=== PATIENT | female | born 1955 | race Caucasian/White ===

== ENCOUNTER 2020-09-28 16:26 | Inpatient (IN) | payer MEDICARE, OTHER ==
[~2020-09-28] VITALS: Ht 177.8 cm; Wt 86.5 kg
[~2020-09-28 16:26] MED LIST: ASPIRIN 81M81 MG/TA2 PO; COLACE 100100 MG/CAP PO; DULCOLAX10 MG RC; HCTZ; HCTZ 25MG TAB25 MG PO; PERCOCET 325 MG1 TA2 PO; TUMS500 MG PO; ZESTRIL40 MG PO
[2020-09-28 18:37] LABS: COLLECTION METHOD CLEAN CATCH
[2020-09-28 18:48] LABS: MUCOUS Present /lpf; PH 7 (5-8); SQUAMOUS EPITHELIAL 0-2 /hpf; URINE APPEARANCE Clear; URINE BACTERIA None Seen /hpf; URINE BILIRUBIN Negative (NEGATIVE); URINE BLOOD Negative (NEGATIVE); URINE COLOR Yellow; URINE GLUCOSE 3+ (NEGATIVE); URINE KETONE Negative (NEGATIVE); URINE LEUKOCYTE ESTERASE Negative (NEGATIVE); URINE NITRATE Negative (NEGATIVE); URINE PROTEIN(semi-quant) 2+ (NEGATIVE); URINE RBC 0-2 /hpf; URINE UROBILINOGEN Negative (NEGATIVE)
[2020-09-28 18:49] LABS: BASO # 0.1 (0.0-0.2); BASO % 0.5 % (0.0-2.0); EOS # 0.1 (0.0-0.7); EOS % 0.8 % (0-4.0); GRAN # 6.6 (1.4-6.5); GRAN % 59.2 % (42.2-75.2); HEMATOCRIT 47.6 % (37.0-47.0); HEMOGLOBIN 15.8 g/dl (12.5-16.0); LYMPH # 3.8 (1.2-3.4); LYMPH % 33.7 % (20.0-51.0); MEAN CELL VOLUME 92 fl (80.0-100.0); MEAN CORPUSCULAR HEMOGLOBIN 31 pg (27.0-31.0); MEAN CORPUSCULAR HGB CONC 33 g/dl (33.0-37.0); MEAN PLATELET VOLUME 9.5 fl (7.4-10.4); MONO # 0.6 (0.1-0.6); MONO % 5.2 % (1.7-9.3); PLATELET COUNT 247 K/mm3 (130-400); RED BLOOD COUNT 5.16 M/mm3 (4.10-5.30); REDCELL DISTRIBUTION WIDTH-CV 12.5 % (11.5-14.5)
[2020-09-28 18:51] LABS: ALANINE AMINOTRANSFERASE 65 U/L (4-34); ALBUMIN 4.4 gm/dL (3.5-5.0); ALKALINE PHOSPHATASE 190 U/L (50-136); ANION GAP 9 mmol/L (7-16); AST,SGOT 56 U/L (15-37); BILIRUBIN,TOTAL 0.6 mg/dL (0.0-1.0); BLOOD UREA NITROGEN 9 mg/dL (7-17); CALCIUM 9.5 mg/dL (8.4-10.2); CARBON DIOXIDE 31 mmol/L (22-30); CHLORIDE 98 mmol/L (98-107); CREATININE, serum 0.47 (0.52-1.25); GLUCOSE 232 mg/dL (74-106); POTASSIUM 3.4 mmol/L (3.4-5.0); SODIUM 137 mmol/L (137-145); TOTAL PROTEIN 8.4 gm/dL (6.4-8.2)
[2020-09-28 19:06] LABS: TROPONIN-I < 0.012 ng/mL (0.000-0.035)
[2020-09-28 19:57] LABS: TSH w REFLEX 2.819 uIU/mL (0.350-4.940)
[2020-09-28 21:58] LABS: MAGNESIUM 1.5 mg/dL (1.6-2.3); PHOSPHOROUS 3.3 mg/dL (2.5-4.5)
[2020-09-28] MEDS ORDERED: ASPIRIN 32325 MG/TAB PO (22:15)
[2020-09-28 23:30] LABS: INR 1.1 (0.8-3.0); PROTHROMBIN TIME 11.7 SECONDS (9.7-12.8)
[2020-09-28 23:32] LABS: PARTIAL THROMBOPLASTIN TIME 31.4 SECONDS (26.0-37.0)
[2020-09-29] VITALS (275 sets, daily range): BP systolic 152–187; BP diastolic 67–87; PULSE 67–106; TEMP 97.8–98.9; O2SAT 90–100
--- NOTE | 2020-09-29 02:47 | NUR ---
PT ADMITTED TO UNIT AT 0150. ATTACHED TO CONTINUOUS MONITORING AND INITIAL ASSESSMENT COMPLETED. AOX4, REPORTS HEADACHE AND FEELING DIZZY. UNDERSTANDS AND COMPLYS WITH PLAN OF CARE FOR BOTH TONIGHT AND TOMORROW. CONCERNS AND QUESTIONS ADDRESSED AND UNIT ORIENTATION COMPLETED.
[2020-09-29 05:36] LABS: BASO # 0.1 (0.0-0.2); BASO % 0.4 % (0.0-2.0); EOS # 0.1 (0.0-0.7); EOS % 0.7 % (0-4.0); GRAN # 8.6 (1.4-6.5); GRAN % 70.9 % (42.2-75.2); HEMATOCRIT 41.2 % (37.0-47.0); HEMOGLOBIN 14.1 g/dl (12.5-16.0); LYMPH # 2.8 (1.2-3.4); MEAN CELL VOLUME 91 fl (80.0-100.0); MEAN CORPUSCULAR HEMOGLOBIN 31 pg (27.0-31.0); MEAN CORPUSCULAR HGB CONC 34 g/dl (33.0-37.0); MEAN PLATELET VOLUME 9.8 fl (7.4-10.4); MONO # 0.6 (0.1-0.6); MONO % 4.5 % (1.7-9.3); PLATELET COUNT 209 K/mm3 (130-400); RED BLOOD COUNT 4.53 M/mm3 (4.10-5.30); REDCELL DISTRIBUTION WIDTH-CV 12.7 % (11.5-14.5)
[2020-09-29 05:47] LABS: CALCIUM 9.1 mg/dL (8.4-10.2); CHOLESTEROL RISK RATIO 4.3; CREATININE, serum 0.59 (0.52-1.25); POTASSIUM 3.5 mmol/L (3.4-5.0)
--- NOTE | 2020-09-29 07:30 | NUR ---
Patient resting in bed; alert and oriented. Assisted up to bathroom. Gait slightly "wobbly" requires standy assist. Assessment complete. Complains of weakness for several days but denies any shortness of breath or any pain. Will continue to monitor.
--- NOTE | 2020-09-29 09:45 | NUR ---
Discussed plan of care with hospitalist. Mail Truck Driver placed order for non-titratable cardizem drip. Discussed with hospitalist and will hold off initiating drip unless systolic BP is greater than 180. Currently running in the 160's. Plan for MRI at 1130. Will continue to monitor.
--- NOTE | 2020-09-29 10:44 | NUR ---
Initial visit; Patient thanked Journeyman Operator Assistant for looking in on her and offering God's blessings and keeping her in Journeyman Operator Assistant's prayers.
--- NOTE | 2020-09-29 11:41 | NUR ---
FLORINDA Diaz is transporting patient via wheelchair to MRI. Will go from MRI directly to surgical floor. Patient alert and orient and per usual status upon transfer.
--- NOTE | 2020-09-29 13:12 | NUR ---
Pt arrives via w/c from MRI. Report was received by Ayesha, PRIMER BOXER. Blood sugar 173. See flowsheet for VS. Patient denies pain or shortness of breath. States that she does have some dizziness remaining but it has improved. INT to RAC/RFA area. Petichiae noted to left arm, remains stable per PRIMER BOXER. Pt aware that she needs to call for gait assessment when she needs the restroom, states understanding. Pt reports that her weakness has stabilized. Alert, oriented x4. Oriented to room and call light system. Call light, phone and personal items within reach. Telemetry ordered, awaiting supervisor hand silvering from ICU.
--- NOTE | 2020-09-29 17:00 | NUR ---
Pt c/o slight headache starting. PRN Tylenol administered per orders. Pt concerned out blood sugars and possible Insulin use when at home. This nurse reviews different options with pt and the importance of establishing a PCP. Pt verbalizes understanding. Call light in reach.
--- NOTE | 2020-09-29 19:22 | NUR ---
Report with FLORINDA Vargas. Pt resting in bed, denies needs at this time. Call light in reach.
--- NOTE | 2020-09-29 23:59 | NUR ---
PT ALERT AND ORIENTED. PT ABLE TO AMBULATE INDEPENDENTLY IN ROOM. PT HAS PETECHIAE AND REDNESS/BRUISING OVER LEFT ARM FROM BP CUFF IN ED. PT NEURO CHECKS WITHIN DEFINED LIMITS, NO SIGNIFICANT CHANGES NOTED AT THIS TIME. PT ABLE TO CONVERSE FREELY AND EXPRESS NEEDS. PT CALL LIGHT [employer] REACH.
[2020-09-30] VITALS (12 sets, daily range): BP systolic 142–200; BP diastolic 72–120; PULSE 57–70; TEMP 97.8–98.7
--- NOTE | 2020-09-30 02:14 | NUR ---
MINOR HEAD TREMOR NOTED FOR 0200 NEURO CHECK. PT JIG OPERATOR NOTED TO BE WEAKER IN LEFT HAND, PT ALERT AND ORIENTEDX4. PT PUPILS PERRLA. CHARGE NURSE NOTIFIED, PT JIG OPERATOR EQUAL UPON REASSESSMENT. WILL CONTINUE TO MONITOR.
--- NOTE | 2020-09-30 03:53 | NUR ---
NOTIFIED OF ELEVATED BLOOD PRESSURE. 191/88. RECHECKED MANUALLY, 190/102 ON LEFT ARM.
--- NOTE | 2020-09-30 05:03 | NUR ---
PT COMPLAINING OF HEADACHE, PRN PAIN MEDICATION PROVIDED PER ORDERS.
--- NOTE | 2020-09-30 06:05 | NUR ---
PT 0600 BP 163/85. TRUONG FLORES NOTIFIED OF BP VALUE. CONFIRMED TO CONTINUE CARDIZEM GTT AND RECHECK BP AT SHIFT CHANGE IN 30MIN.
--- NOTE | 2020-09-30 07:03 | NUR ---
GAVE REPORT TO DAY SHIFT, WILL CONTINUE TO FOLLOW BP VALUES.
--- NOTE | 2020-09-30 11:14 | NUR ---
Patient alert and oriented, answers questions appropriately. See assessment. Hand oil deliverer even, dorsi and plantar flexion equal. Tongue midline. Pupils equal and reactive to light. NO c/o vertigo or weakness. Fine tremors noted to right hand. No other c/o at this time.
--- NOTE | 2020-09-30 11:55 | NUR ---
fruit or nut farmworker met with patient to discuss discharge plan. Patient states she lives with her daughter Venus [phone]. Patient reports she is independent will all activities of daily living and uses no equipment to assist with mobility. Patient reports that she does not have a PCP established but wishes to get one. Patient states she would prefer a female who is an internal medicine doctor. fruit or nut farmworker has reached out to the office of Dr. Cata Stephen to establish patient and is awaiting a call back. Patient reports that she has previously not had issues affording medications but thinks she will upon discharge. Email sent to Aleksandra Lambert to initiate Medicaid application. Patient reports that she does not have a DPOA-HC established but wishes to take a form home to speak with her daughter.fruit or nut farmworker provided form to patient and educated her that she will need to have it notarized and to not sign it until then.Patient plans to discharge home with her daughter when ready. *Discharge Plan: Home with daughter*
--- NOTE | 2020-09-30 23:00 | NUR ---
PT ALERT AND ORIENTED. PT REPORTS FRUSTRATION OVER BLOOD SUGAR MONITORING AND INSULIN USE. PT EDUCATED TO BEST OF ABILITY. PT NEURO CHECKS WITHIN DEFINED LIMITS, NO SIGNIFICANT CHANGES NOTED AT THIS TIME. PT IV IN RIGHT AC UNABLE TO FLUSH, LEAKING. IV DISCONTINUED AND RESTARTED 20G IN RIGHT FOREARM. PT CALL LIGHT WITHIN REACH.
[2020-10-01 03:19] VITALS: BP 162/84; PULSE 61; TEMP 98.3
--- NOTE | 2020-10-01 05:19 | NUR ---
PT PROGRESSING WITH PLAN OF CARE. PT VS REMAINED STABLE THIS SHIFT. PT NEURO CHECKS WITHIN DEFINED LIMITS, NO SIGNIFICANT CHANGES NOTED DURING SHIFT. PT ABLE TO AMBULATE INDEPENDENTLY IN ROOM. PT FREE FROM INJURY THIS SHIFT.
[2020-10-01 06:59] LABS: BASO # 0.1 (0.0-0.2); BASO % 0.8 % (0.0-2.0); EOS # 0.1 (0.0-0.7); EOS % 1.8 % (0-4.0); GRAN # 3.9 (1.4-6.5); HEMATOCRIT 40.5 % (37.0-47.0); HEMOGLOBIN 13.5 g/dl (12.5-16.0); LYMPH # 2.9 (1.2-3.4); LYMPH % 37.6 % (20.0-51.0); MEAN CELL VOLUME 93 fl (80.0-100.0); MEAN CORPUSCULAR HEMOGLOBIN 31 pg (27.0-31.0); MEAN CORPUSCULAR HGB CONC 33 g/dl (33.0-37.0); MEAN PLATELET VOLUME 10.4 fl (7.4-10.4); MONO # 0.6 (0.1-0.6); MONO % 7.3 % (1.7-9.3); PLATELET COUNT 191 K/mm3 (130-400); RED BLOOD COUNT 4.36 M/mm3 (4.10-5.30); REDCELL DISTRIBUTION WIDTH-CV 12.5 % (11.5-14.5)
[2020-10-01 07:12] LABS: CALCIUM 9.6 mg/dL (8.4-10.2); CREATININE, serum 0.53 (0.52-1.25)
[2020-10-01 08:10] VITALS: PULSE 67; TEMP 98.4
[2020-10-01 08:48] VITALS: BP 154/76
[2020-10-01] MEDS ORDERED: LIPITOR 40MG TA40 MG PO (09:12)
[2020-10-01] MEDS ORDERED: COREG 25MG25 MG/TAB PO (09:13)
[2020-10-01] MEDS ORDERED: NORVASC 5MG5 MG/TAB PO (09:13)
[2020-10-01] MEDS ORDERED: GLUCOPHAGE500 MG/TAB PO (09:15)
[2020-10-01] MEDS ORDERED: COZAAR 25MG25 MG/TAB PO ×2 (09:15)
[2020-10-01] MEDS ORDERED: ASPIRIN E.C. 8181 MG PO (09:15)
[2020-10-01] MEDS ORDERED: COZAAR 50MG50 MG/TAB PO (09:25)
[2020-10-01] MEDS ORDERED: NICODERM C7 MG/PATCH TD (09:35)
--- NOTE | 2020-10-01 11:24 | NUR ---
sheet metal production worker met with patient and providers and assisted with securing a safe discharge home with daughter today. Worker secured an appointment with Dr Ginger Molina on 10/07/2020 at 11:45am. Worker provided information on [facility] and advised that they are an agency that will see patient prior to a primary care provider appointment. Worker contacted Nahomi at [facility] and gave the referral. Nahomi will contact patient this evening and schedule a visit. Worker provided patient the contact information for Jony Sr with [employer] as Jony will provide patient with a free bus pass. Worker arranged for patient to obtain a front wheeled walker with [facility] as they are agency that will bill medicare and will accept hospital voucher for uninsured copay. Worker arranged for walker to be delivered to patient's room today before 2:00. Worker assisted with payment for all prescriptions through Room. Patient states her family will transport her home today and daughter will pickling operator her prescriptions this date. Worker provided patient with written contact information of our financial counselor to begin application for medicaid. Worker provided patient with Area [employer] information to contact for health health insurance adjuster to explore insurances coverage for prescriptions. Patient will discharge home with home health today.
--- NOTE | 2020-10-01 11:36 | NUR ---
dam worker presented the IM form and assisted patient complete a durable power of commercial attorney for health care. Copies given to patient and a copy placed on chart.
[2020-10-01 11:42] VITALS: BP 152/92; PULSE 62; TEMP 98.1
--- NOTE | 2020-10-01 12:26 | NUR ---
Patient alert and oriented, answers questions appropriately. See assessment. Heart tones strong and even, pulses palpable. No c/o chest/neck pain or pressure. Patient refuses to keep arm still for BP checks, attempts to remove cuff. States BP cuff hurts her arm and she doesn't want BP taken. Recorded BPs appear inaccurate. Patient reqeusted walker for discharge, when walker delivered, patient refuses walker. No other c/o at this time.
--- NOTE | 2020-10-01 14:16 | NUR ---
Patient refused to accept the front wheeled walker when it was delivered to her hospital room. Worker contacted patient's provider, Wanda and advised of the above information.
--- NOTE | 2020-10-01 15:45 | NUR ---
Discharge instructions reviewed with patient, verbalized understanding. Discharged via wheelchair to auto/home with family at 1525.
--- NOTE | 2020-10-01 17:00 | NUR ---
mill worker discussed with patient that [facility] will deliver but they would not be able to get her medications to her today and that the ealiest would be tomorrow. Patient is frustrated by this and doesn't understand why the hospital cannot just administer her tonights medications before she leaves. Worker explained that some of the medications were on a time regimen and that it would be a safety concern. Worker asked if the patient had secured a ride home. Patient replied that her friend Elmer was going to be here between [phone] to pick her up. Worker suggested to patient to have Elmer take her by [facility] on the way home to lemon picker her medications.
--- NOTE | 2020-10-06 15:31 | NUR ---
Adrienne with [facility] states that patient refuses to have home health at this time.
== END 2020-10-01 15:25 | disposition home or self-care (01) | DRG 304 ==
LOC: COL.ER 16:26 → SURG 21:42 → ICU 21:42 → SURG 09-29 12:38
PROVIDERS: Emergency Medicine; Nurse Practitioner Family; Physician Assistant; ADMIT Student in an Organized Health Care Education/Training Program
DX: I16.1 Hypertensive emergency (principal); I63.9 Cerebral infarction, unspecified; G81.94 Hemiplegia, unspecified affecting left nondominant side; I10 Essential (primary) hypertension; F17.210 Nicotine dependence, cigarettes, uncomplicated; G25.0 Essential tremor; G47.33 Obstructive sleep apnea (adult) (pediatric); Z79.82 Long term (current) use of aspirin; E11.65 Type 2 diabetes mellitus with hyperglycemia; D72.829 Elevated white blood cell count, unspecified; R23.3 Spontaneous ecchymoses; Z82.49 Family history of ischemic heart disease and other diseases of the circulatory system; Z88.0 Allergy status to penicillin; R94.31 Abnormal electrocardiogram [ECG] [EKG]; R74.01 Elevation of levels of liver transaminase levels; E87.6 Hypokalemia; E83.42 Hypomagnesemia
CPT/HCPCS: 99223-AI; 99233-AI; 99239; A9585; J1650; J1815; J3475; J7030; J7050; Q9967

== ENCOUNTER 2023-02-16 11:14 | Emergency (ER) | payer MEDICARE ==
[~2023-02-16] VITALS: Ht 175.3 cm; Wt 81.8 kg
[~2023-02-16 11:14] MED LIST changes: +ASPIRIN 32325 MG/TAB PO; +ASPIRIN E.C. 8181 MG PO; +COREG 25MG25 MG/TAB PO; +COZAAR 25MG25 MG/TAB PO; +COZAAR 50MG50 MG/TAB PO; +GLUCOPHAGE500 MG/TAB PO; +LIPITOR 40MG TA40 MG PO; +NICODERM C7 MG/PATCH TD; +NORVASC 5MG5 MG/TAB PO
[2023-02-16 11:57] LABS: BASO # 0.1 K/mm3 (0.0-0.2); BASO % 0.6 % (0.0-2.0); EOS # 0.1 K/mm3 (0.0-0.7); EOS % 1.1 % (0.0-4.0); GRAN # 5.9 K/mm3 (1.4-6.5); GRAN % 56.1 % (42.2-75.2); HEMATOCRIT 45.8 % (37.0-47.0); HEMOGLOBIN 15.4 g/dl (12.5-16.0); LYMPH # 3.9 K/mm3 (1.2-3.4); LYMPH % 36.9 % (20.0-51.0); MEAN CELL VOLUME 92 fl (80.0-100.0); MEAN CORPUSCULAR HEMOGLOBIN 31 pg (27-31); MEAN CORPUSCULAR HGB CONC 34 g/dl (33.0-37.0); MEAN PLATELET VOLUME 9.2 fl (7.4-10.4); MONO # 0.5 K/mm3 (0.1-0.6); MONO % 4.9 % (1.7-9.3); PLATELET COUNT 295 K/mm3 (130-400); RED BLOOD COUNT 4.99 M/mm3 (4.10-5.30); REDCELL DISTRIBUTION WIDTH-CV 12.1 % (11.5-14.5)
[2023-02-16 12:09] LABS: BILIRUBIN,TOTAL 1.1 mg/dL (0.2-1.2); CALCIUM 10.9 mg/dL (8.4-10.2); CREATININE, serum 0.78 mg/dL (0.57-1.11); POTASSIUM 3.6 mmol/L (3.5-4.5); TOTAL PROTEIN 8.1 gm/dL (6.2-8.1)
[2023-02-16 12:46] LABS: COLLECTION METHOD CLEAN CATCH
[2023-02-16 13:05] LABS: PH 5.5 (5.0-8.5); URINE APPEARANCE Clear (CLEAR/HAZY); URINE BLOOD 2+ (NEGATIVE); URINE COLOR Yellow (YELLOW); URINE GLUCOSE TRACE (NEGATIVE); URINE KETONE 1+ (NEGATIVE); URINE NITRATE Negative (NEGATIVE); URINE PROTEIN(semi-quant) 2+ (NEGATIVE); URINE UROBILINOGEN 0.2 E.U/dL (0.2-1.0)
[2023-02-16 13:06] LABS: MUCOUS Present (NOT PRESENT); SQUAMOUS EPITHELIAL 0-2 /hpf (0-10); URINE BACTERIA Moderate /hpf (NONE SEEN)
[2023-02-16] MEDS ORDERED: NORCO 325 MG-51 TAB PO (13:37)
[2023-02-16 14:14] VITALS: BP 145/79; PULSE 72; TEMP 97.9
== END 2023-02-16 14:11 | disposition home or self-care (01) ==
LOC: COL.ER 11:14
PROVIDERS: Nurse Practitioner
DX: S39.012A Strain of muscle, fascia and tendon of lower back, initial encounter (principal); R31.9 Hematuria, unspecified; X58.XXXA Exposure to other specified factors, initial encounter
CPT/HCPCS: J1885; J7030; Q9967